=== PATIENT | male | born 1940 | race Caucasian/White ===

== ENCOUNTER 2017-07-19 12:47 | Day surgery (SDC) | payer MEDICARE ==
[2017-07-19] MEDS ORDERED: VITA1000 PO (13:55)
[2017-07-19] MEDS ORDERED: DILT30TA PO (13:55)
[2017-07-19] MEDS ORDERED: TAMS5CAP PO (13:55)
[2017-07-19] MEDS ORDERED: APIX5TAB PO (13:55)
[2017-07-19] MEDS ORDERED: AVOD0.5C PO (13:55)
[2017-07-19] MEDS ORDERED: METO25TA3 PO (13:55)
[2017-07-19] MEDS ORDERED: MULT400T PO (13:55)
[2017-07-19] MEDS ORDERED: BENA5TAB PO (13:55)
[2017-07-19] MEDS ORDERED: MAGN250T11 PO (13:55)
[2017-07-19] MEDS ORDERED: ROSU5 PO (13:55)
[2017-07-19] MEDS ORDERED: LACTATED RINGER'S 1000 ML IV PRN (14:00)
[2017-07-19] MEDS ORDERED: SODIUM CHLORID 0.9% 500 ML IV PRN (14:00)
[2017-07-19] MEDS ORDERED: POVIDONE IODINE 5% (ANTISEPSIS KIT) 4 APPLICATIONS EACH NARE PRN (14:00)
[2017-07-19] MEDS ORDERED: CHLORHEXIDINE GLUCONATE 2 % 1 PACK (2 CLOTHS) TOPICAL PRN (14:00)
[2017-07-19] MEDS ORDERED: METOPROLOL TARTRATE 25 MG TAB PO PRN (14:00)
[2017-07-19] MEDS ORDERED: PROPOFOL 200 MG/20 ML AMP ONE (14:22)
--- NOTE | 2017-07-19 15:18 | MR ---
cc: Delaney Fofana MD DATE: 07/19/2017 INDICATION: Atrial fibrillation. PROCEDURE PERFORMED: Direct current cardioversion. COMPLICATIONS: None. PROCEDURE: After the patient was sedated by anesthesia, 200 joule biphasic shock was delivered and converted the patient to sinus rhythm. The patient remained stable and was discharged in stable condition. DIAGNOSIS: Successful cardioversion of atrial fibrillation. DISPOSITION: Mr. Humphrey will continue his current medical therapy including anticoagulation. I will see him back for followup in our office after discharge. Delaney Fofana MD OQ/TL , 02:50 PM , 03:17 PM MTDD
--- NOTE | 2017-07-20 12:21 | EKG ---
Date Performed: 07/19/2017 Time Performed: 13:13:44 PTAGE: 76 years EKG: Atrial fibrillation. Lead(s) unsuitable for analysis: V2 Abnormal ECG NO PREVIOUS TRACING DOCTOR: Nirav Arguello Interpretating Date/Time 07/20/2017 12:17:35
--- NOTE | 2017-07-20 13:23 | EKG ---
Date Performed: 07/19/2017 Time Performed: 14:59:50 PTAGE: 76 years EKG: Sinus rhythm . Baseline artifact is noted The patient is no longer in atrial fibrillation compared to the prior tr acing. Borderline ECG PREVIOUS TRACING : 07/19/2017 13.13 DOCTOR: Nirav Arguello Interpretating Date/Time 07/20/2017 13:22:38
== END 2017-07-19 15:44 | disposition home or self-care (01) ==
LOC: HDOC 12:47 → HDIC 12:48 → HDOC 15:44
PROVIDERS: ATTEND Internal Medicine Interventional Cardiology
DX: I48.91 Unspecified atrial fibrillation (principal)
CPT/HCPCS: 92960; 93005